=== PATIENT | female | born 1985 | race Two or more races ===

== ENCOUNTER 2024-09-25 04:27 | Inpatient (IN) | payer OTHER ==
[~2024-09-25] VITALS: Ht 165.1 cm; Wt 86.4 kg
--- NOTE | 2024-09-25 05:13 | ED.PDOC ---
History of Present Illness HPI Comments 39-year-old female with PMHx Fibroids brought in by EMS presents with a chief complaint of abdominal pain, nausea, and vomiting. Patient states that her pain is localized to her suprapubic abdomen, non-radiating, describes as sharp, and rates her pain 10/10. Patient reports that the symptoms began at 0300 this morning and that she took an Alleve at 0315. Patient also reports vaginal spotting, but endorses uterine fibroid history. 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 Family History Family History: Reviewed,noncontributory to illness Social History Smoker: Non-Smoker Alcohol: Denies ETOH Use Drugs: Denies Drug Use Lives In: Home Constitutional: denies: chills, diaphoresis, fatigue, fever, malaise, sweats, weakness, others EENTM: denies: blurred vision, double vision, ear bleeding, ear discharge, ear drainage, ear pain, ear ringing, eye pain, eye redness, hearing loss, mouth pain, mouth swelling, nasal discharge, nose bleeding, nose congestion, nose pain, photophobia, tearing, throat pain, throat swelling, voice changes, others Respiratory: denies: cough, hemoptysis, orthopnea, SOB at rest, shortness of breath, SOB with excertion, stridor, wheezing, others Cardiovascular: denies: chest pain, dizzy spells, diaphoresis, Dyspnea on exertion, edema, irregular heart beat, left arm pain, lightheadedness, palpitations, PND, syncope, others Gastrointestinal: reports: abdominal pain, nausea, vomiting; denies: abdomen distended, blood streaked bowels, constipated, diarrhea, dysphagia, difficulty swallowing, hematemesis, melena, poor appetite, poor fluid intake, rectal bleeding, rectal pain, others Genitourinary: denies: abnormal vagina bleeding, burning, dyspareunia, dysuria, flank pain, frequency, hematuria, incontinence, pain, , vagina discharge, urgency, others Neurological: denies: dizziness, fainting, headache, left sided numbness, left sided weakness, numbness, paresthesia, pre-existing deficit, right sided numbness, right sided weakness, seizure, speech problems, tingling, tremors, weakness, others Musculoskeletal: denies: back pain, gout, joint pain, joint swelling, muscle pain, muscle stiffness, neck pain, others Integumetry: denies: bruises, change in color, change in hair/nails, dryness, laceration, lesions, lumps, rash, wounds, others Allergic/Immunocompromised: denies: Difficulty Healing, Frequent Infections, Hives, Itching, others Hematologic/Lymphatic: denies: anemia, blood clots, easy bleeding, easy bruising, swollen glands, others Endocrine: denies: excessive hunger, excessive sweating, excessive thirst, excessive urination, flushing, intolerance to cold, intolerance to heat, unexplained weight gain, unexplained weight loss, others Psychiatric: denies: anxiety, bipolar disorder, depression, hopeless, panic disorder, schizophrenia, sleepless, suicidal, others All Other Systems: Reviewed and Negative Physical Exam General Appearance: Moderate Distress, Normal HEENT: Normal ENT Inspection, Pharynx Normal, TMs Normal Neck: Full Range of Motion, Non-Tender, Normal, Normal Inspection Respiratory: Chest Non-Tender, Lungs Clear, No Accessory Muscle Use, No Respiratory Distress, Normal Breath Sounds Cardiovascular: No Edema, No JVD, No Murmur, No Gallop, Normal Peripheral Pulses, Regular Rate/Rhythm Breast Exam: Deferred Gastrointestinal: No Organomegaly, Non Tender, No Pulsatile Mass, Normal Bowel Sounds, Soft Genitalia: Deferred Pelvic: Deferred Rectal: Deferred Extremities: No calf tenderness, Normal capillary refill, Normal inspection, Normal range of motion, Non-tender, No pedal edema Musculoskeletal : Apperance: Normal Neurologic: Alert, director experimental medicine II-XII nml as Tested, No Motor Deficits, Normal Affect, Normal Mood, No Sensory Deficits Cerebellar Function: NOT DONE Reflexes: NOT DONE Skin: Dry, Normal Color, Warm Peripheral Pulses: 3+ Radial (R), 3+ Radial (L) Lymphatic: No Adenopathy Was a procedure done? Was a procedure done?: No Differential Dx Considerations may include: Fibroid Electrolyte imbalance X-Ray, Labs, Meds, VS Vital Signs Date Time Temp Pulse Resp B/P (MAP) Pulse Ox O2 Delivery O2 Flow Rate FiO2 09/25/24 05:29 16 99 Room Air* 0 21 09/25/24 05:27 97.8 95 16 110/55 (73) 99 97.8 09/25/24 04:31 98.0 85 26 110/75 (87) 95 Lab Test 09/25/24 09:00 09/25/24 06:43 09/25/24 06:30 Range/Units White Blood Count 10.6 4.4-10.8 10^3/uL Red Blood Count 2.99 L 4.0-5.20 10^6/uL Hemoglobin 4.2 *L 12.2-16.2 g/dL Hematocrit 16.0 L 36.0-46.0 % Mean Corpuscular Volume 53.4 L 80.0-100.0 fL Mean Corpuscular Hemoglobin 14.0 L 28.0-32.0 pg Mean Corpuscular Hemoglobin Concent 26.2 L 32.0-36.0 g/dL Red Cell Distribution Width 22.3 H 11.8-14.3 % Platelet Count 192 140-450 10^3/uL Mean Platelet Volume 8.5 6.9-10.8 fL Neutrophils (%) (Auto) 84.0 H 37.0-80.0 % Lymphocytes (%) (Auto) 11.3 10.0-50.0 % Monocytes (%) (Auto) 4.4 0.0-12.0 % Eosinophils (%) (Auto) 0.1 0.0-7.0 % Basophils (%) (Auto) 0.2 0.0-2.0 % Neutrophils # (Auto) 8.9 H 1.6-8.6 10 ^3/uL Lymphocytes # (Auto) 1.2 0.4-5.4 10 ^3/uL Monocytes # (Auto) 0.5 0-1.3 10 ^3/uL Eosinophils # (Auto) 0 0-0.8 10 ^3/uL Basophils # (Auto) 0 0-0.2 10 ^3/uL Nucleated Red Blood Cells 0.2 % Platelet Estimate Adequate Hypochromasia (manual) Marked Anisocytosis (manual) Slight Microcytosis Moderate Tear Drop Cells Few Ovalocytes Few Sodium Level 137 136-145 mmol/L Potassium Level 3.6 3.5-5.1 mmol/L Chloride Level 108 H 98-107 mmol/L Carbon Dioxide Level 21 20-31 mmol/L Anion Gap 8 5-15 Blood Urea Nitrogen 7 L 9-23 mg/dL Creatinine 0.84 0.550-1.02 mg/dL Glomerular Filtration Rate Calc 90 >90 mL/min BUN/Creatinine Ratio 8.3 L 10.0-20.0 Serum Glucose 98 74-106 mg/dL Calcium Level 7.6 L 8.7-10.4 mg/dL Urine Color Light-yellow Yellow Urine Clarity Clear Clear Urine pH 6.0 5.0-9.0 Urine Specific [place] 1.020 1.001-1.035 Urine Protein Trace H Negative Urine Ketones Negative Negative Urine Blood 2+ H Negative /uL Urine Nitrite Negative Negative Urine Bilirubin Negative Negative Urine Urobilinogen Normal Negative mg/dL Urine Leukocyte Esterase 1+ Negative /uL Urine RBC 88 0 - 4 /hpf Urine WBC 7 0 - 5 /hpf Urine Squamous Epithelial Cells Few <5 /hpf Urine Bacteria None seen None Seen /hpf Urine Mucus Few None Seen Urine Glucose Normal Normal mg/dL Urine Test Negative Negative Current Medications Medications (Trade) Dose Ordered Sig/Himanshu Route Start Time Stop Time Status Last Admin Sodium Chloride 1,000 ml @ 1,000 mls/hr Q1H ONCE IV 09/25/24 05:15 09/25/24 06:14 DC 09/25/24 05:41 Acetaminophen (Tylenol Tablet) 650 mg ONCE ONCE PO 09/25/24 05:15 09/25/24 05:16 DC 09/25/24 05:46 Patient alert. Complaining of vaginal spotting. Ultrasound reveals fibroid. Vitals stable. Establish intravenous access. Was given fluids. UA shows UTI. Was given prescription of Macrobid antibiotic. Reviewed her history. Explained to the patient. [facility] approved inpatient admission [id number]. Time of 1ST Reevaluation: 08:57 Reevaluation 1ST: Unchanged Patient Education/Counseling: Diagnosis, Treatment, Prognosis Family Education/Counseling: No Family Present Departure 1 Departure Time of Disposition: 08:58 Impression: Primary Impression: Severe anemia Additional Impressions: Urinary tract infection Qualified Codes: N30.01 - Acute cystitis with hematuria Fibroid Disposition: ADMITTED INPATIENT Admit to: Med Surg Condition: Guarded e-Prescriptions Nitrofurantoin Monohydrate Mac (Macrobid) 100 Mg Cap 100 MG PO BID for 7 Days, #14 CAP Prov: IVETT EDWARDS MD 09/25/24 Discharged With: Self Critical Care Note Critical Care Time?: No Stability Stability form required: No Heart Score Heart Score: Heart Score Response (Comments) Value History N/A 0 EKG N/A 0 Age N/A 0 Risk Factors N/A 0 Troponin N/A 0 Total 0 I personally scribed for SUMANTH VILLEGAS MD ([email or web address]) on 09/25/24 at 05:13. Electronically submitted by Zia Wilkes ([email or web address]). SUMANTH VILLEGAS MD Sep 25, 2024 05:13 IVETT EDWARDS MD Sep 25, 2024 09:00
[2024-09-25 05:27] VITALS: BP 110/55; PULSE 95; TEMP 97.8
[2024-09-25 05:29] VITALS: RESP 16; O2SAT 99
[2024-09-25] MEDS: SODIUM CHLORIDE 0.9% 1,000 ML IV ONE (05:41)
[2024-09-25] MEDS: KETOROLAC TROMETH 30 MG/ML 1ML VIAL IV ONE (05:44)
[2024-09-25] MEDS: ACETAMINOPHEN 325 MG TAB PO ONE (05:46)
[2024-09-25] MEDS: ONDANSETRON HCL 4 MG/2 ML VIAL IV ONE (05:46)
[2024-09-25 07:19] LABS: Urine Bacteria None Seen /hpf (None Seen)
[2024-09-25 07:19] LABS: Potassium 3.6 mmol/L (3.5-5.1); Sodium 137 mmol/L (136-145)
[2024-09-25 07:20] LABS: Anion Gap 8 (5-15); Carbon Dioxide 21 mmol/L (20-31)
[2024-09-25 07:25] LABS: Glucose 98 mg/dL (74-106)
[2024-09-25 07:25] LABS: Urine Blood 2+ /uL (Negative); Urine Clarity Clear (Clear); Urine Color Light-Yellow (Yellow); Urine Mucus FEW (None Seen); Urine Protein, UAD TRACE (Negative); Urine Urobilinogen Normal (Negative); Urine WBC 7 /hpf (0 - 5)
[2024-09-25 07:26] LABS: BUN/Creatinine Ratio 8.3 (10.0-20.0); Blood Urea Nitrogen 7 mg/dL (9-23); Calcium 7.6 mg/dL (8.7-10.4); Chloride 108 mmol/L (98-107)
--- NOTE | 2024-09-25 08:34 | DVH ---
INDICATION: Fibroid TECHNIQUE: Multiple real-time grayscale transabdominal sonographic images along with color and duplex Doppler of the uterus and ovaries were obtained. COMPARISON: None FINDINGS: The uterus measures 15.3 x 8.2 x 9.8 cm. The uterus is heterogeneous in echotexture. There are 3 uterine masses in the myometrium the largest measuring 4.7 x 4.5 x 4.6 cm compatible with fibro ids. The endometrial stripe measures 0.8 cm. The right ovary measures 2.6 x 1.1 x 2.6 cm. The left ovary measures 2.3 x 2.6 x 1.8 cm. Subsequent color and duplex Doppler interrogation of the ovaries demonstrated symmetric vascular flow to both ovaries. No free fluid in the cul-de-sac. IMPRESSION: 1. Intramural fibroids, the largest measuring 4.7 cm. 2. Unremarkable sonographic appearance of the bilateral ovaries.
[2024-09-25] MEDS ORDERED: NITR-87 PO (08:59)
[2024-09-25 09:16] LABS: Basophils # (auto) 0 10 ^3/uL (0-0.2); Eosinophils # (auto) 0 10 ^3/uL (0-0.8); Eosinophils % (auto) 0.1 % (0.0-7.0); Lymphocytes # (auto) 1.2 10 ^3/uL (0.4-5.4); Mean Corpuscular Volume 53.4 fL (80.0-100.0); Monocytes # (auto) 0.5 10 ^3/uL (0-1.3)
[2024-09-25 09:18] LABS: Basophils % (auto) 0.2 % (0.0-2.0); Lymphocytes % (auto) 11.3 % (10.0-50.0); Mean Corpuscular Hgb Conc. 26.2 g/dL (32.0-36.0); Monocytes % (auto) 4.4 % (0.0-12.0); Neutrophils # (auto) 8.9 10 ^3/uL (1.6-8.6); Nucleated Red Blood Cells % 0.2 %; Platelet Count (auto) 192 10^3/uL (140-450); Red Blood Cells 2.99 10^6/uL (4.0-5.20); White Blood Cell 10.6 10^3/uL (4.4-10.8)
[2024-09-25 09:42] LABS: Red Cell Distribution Width 22.3 % (11.8-14.3)
[2024-09-25 09:44] LABS: Hemoglobin 4.2 g/dL (12.2-16.2)
[2024-09-25 10:06] LABS: Anisocytosis Slight; Hypochromia Marked; Platelet Estimate Adequate
[2024-09-25 10:07] LABS: Ovalocytes FEW; Tear Drop Cells FEW
[2024-09-25] MEDS: cefTRIAXone 1GM/50ML D5W 50 ML IV ONE (11:35)
--- NOTE | 2024-09-25 12:01 | DVHHP2 ---
History of Present Illness Reason for Visit: abd pain dizziness weakness History of Present Illness 39-year-old female past medical history denies no surgical history chief complaint patient comes in because she stated she has been having severe lower pelvic pain and cramping dizziness and weakness. She states it all started last year she started having issues with her cycle. She has been having more heavy Mrs. Than normal. She states that she did get a blood transfusion in the past in January of 2024 she feels was related to her having fibroids but she never had initial ultrasound and confirmation as of yet. She does go to [facility] to be seen and she wants to go follow up with the inner diameter grinder tool provider to have a procedure to get rid of the circulation to the fibroid she has a inner diameter grinder tool doctor she wants to go see. Patient currently is severe anemic on my exam but does not want a transfusion. She states she wants to go do outpatient follow up in tried to bring her anemia up on its own. She states that she was on control pills and despite that she continues to bleed currently she was having 1-2 pads a day but she states she was due to have her menses to started again. When looking at her labs from the ED hemoglobin was 4.2 16.0 chloride is 108 calcium was low at 7.6 UA showed trace blood and leukocytes ultrasound found a 4.7 cm fibroid. Patient was to be admitted for blood transfusion but patient declined admission and left AMA Past Medical History Denies medical history Past Surgical History Denies surgical history Family History Reviewed, non-contributory to the management of this case. Past Social History The patient lives at home, denies smoking, alcohol or illicit drugs abuse. Review of Systems Constitutional: Yes: Other (Pale in color) Eyes: No: Pain, Vision change, Conjunctivae inflammation, Eyelid inflammation, Other, Redness ENT: No: Ear pain, Ear discharge, Nose pain, Nose discharge, Nose congestion, Mouth pain, Mouth swelling, Throat pain, Throat swelling, Other Respiratory: No: Cough, Dry, Shortness of breath, SOB with excertion, Wheezing, Hemoptysis, Pleuritic Pain, Sputum, Wheezing, Other Cardiovascular: No: Chest Pain, Palpitations, Orthopnea, Paroxysmal Noc. Dyspnea, Edema, Lt Headedness, Other Gastrointestinal: No: Nausea, Vomiting, Abdominal Pain, Diarrhea, Constipation, Melena, Hematochezia, Other Genitourinary: No Dysuria, No Frequency, No Incontinence, No Hematuria, No Retention; Other (Vaginal bleeding) Musculoskeletal: No: other, neck pain, shoulder pain, arm pain, back pain, hand pain, leg pain, foot pain Skin: No: Rash, Lesions, Jaundice, Bruising, Other Neurological: Weakness (And dizziness); No: Numbness, Incoordination, Change in speech, Confusion, Seizures, Other Allergies: Coded Allergies: NO KNOWN ALLERGIES (Unverified , 09/25/24) Exam Vital Signs Vital Signs Date Time Temp Pulse Resp B/P (MAP) Pulse Ox O2 Delivery O2 Flow Rate FiO2 09/25/24 05:29 16 99 Room Air* 0 21 09/25/24 05:27 97.8 95 110/55 (73) 97.8 General Appearance: Alert, Oriented X3, Cooperative, Other (Pale in color) HEENT: Atraumatic, PERRLA, EOMI, Mucous membr. moist/pink Respiratory: Clear to auscultation, Normal air movement Cardiovascular: Regular rate, Normal S1, Normal S2, No murmurs Abdominal: Normal bowel sounds, Soft, No tenderness, No hepatospenomegaly, No masses Extremities: No clubbing, No cyanosis, No edema, Normal pulses, No tenderness/swelling Skin: No rashes, No breakdown, No significant lesion Neuro: Normal gait, Normal speech, Strength at 5/5 X4 ext, Normal tone, Sensation intact, Cranial nerves 3-12 NL Psych/Mental Status: Mental status NL, Mood NL Labs/Xrays I reviewed labs, imaging CT scan abdomen pelvis, EKG and all diagnostic studies on this patient from ED records and the medical chart Ultrasound found to have 4.7 cm fibroids Labs Test 09/25/24 09:00 09/25/24 06:43 09/25/24 06:30 Range/Units White Blood Count 10.6 4.4-10.8 10^3/uL Red Blood Count 2.99 L 4.0-5.20 10^6/uL Hemoglobin 4.2 *L 12.2-16.2 g/dL Hematocrit 16.0 L 36.0-46.0 % Mean Corpuscular Volume 53.4 L 80.0-100.0 fL Mean Corpuscular Hemoglobin 14.0 L 28.0-32.0 pg Mean Corpuscular Hemoglobin Concent 26.2 L 32.0-36.0 g/dL Red Cell Distribution Width 22.3 H 11.8-14.3 % Platelet Count 192 140-450 10^3/uL Mean Platelet Volume 8.5 6.9-10.8 fL Neutrophils (%) (Auto) 84.0 H 37.0-80.0 % Lymphocytes (%) (Auto) 11.3 10.0-50.0 % Monocytes (%) (Auto) 4.4 0.0-12.0 % Eosinophils (%) (Auto) 0.1 0.0-7.0 % Basophils (%) (Auto) 0.2 0.0-2.0 % Neutrophils # (Auto) 8.9 H 1.6-8.6 10 ^3/uL Lymphocytes # (Auto) 1.2 0.4-5.4 10 ^3/uL Monocytes # (Auto) 0.5 0-1.3 10 ^3/uL Eosinophils # (Auto) 0 0-0.8 10 ^3/uL Basophils # (Auto) 0 0-0.2 10 ^3/uL Nucleated Red Blood Cells 0.2 % Platelet Estimate Adequate Hypochromasia (manual) Marked Anisocytosis (manual) Slight Microcytosis Moderate Tear Drop Cells Few Ovalocytes Few Sodium Level 137 136-145 mmol/L Potassium Level 3.6 3.5-5.1 mmol/L Chloride Level 108 H 98-107 mmol/L Carbon Dioxide Level 21 20-31 mmol/L Anion Gap 8 5-15 Blood Urea Nitrogen 7 L 9-23 mg/dL Creatinine 0.84 0.550-1.02 mg/dL Glomerular Filtration Rate Calc 90 >90 mL/min BUN/Creatinine Ratio 8.3 L 10.0-20.0 Serum Glucose 98 74-106 mg/dL Calcium Level 7.6 L 8.7-10.4 mg/dL Urine Color Light-yellow Yellow Urine Clarity Clear Clear Urine pH 6.0 5.0-9.0 Urine Specific [place] 1.020 1.001-1.035 Urine Protein Trace H Negative Urine Ketones Negative Negative Urine Blood 2+ H Negative /uL Urine Nitrite Negative Negative Urine Bilirubin Negative Negative Urine Urobilinogen Normal Negative mg/dL Urine Leukocyte Esterase 1+ Negative /uL Urine RBC 88 0 - 4 /hpf Urine WBC 7 0 - 5 /hpf Urine Squamous Epithelial Cells Few <5 /hpf Urine Bacteria None seen None Seen /hpf Urine Mucus Few None Seen Urine Glucose Normal Normal mg/dL Urine Test Negative Negative Assessment/Plan Assessment/Plan Acute symptomatic blood loss anemia likely to fibroids pt will be provided 3 units or prbc's will do follow up h/h post transfusion will need outpt follow up with inner diameter grinder tool ordered ivf for now Patient had ultrasound completed shows 4.7 cm fibroids Acute hypocalcemia will provide calcium gluconate iv x1 fu [place] in am Acute cystitis found on ua ordered ceftriaxone 1 gm iv Chronic fibroids found us outpt follow up with inner diameter grinder tool fen/ppx diet ivf scd no dvt ppx since pt with acute bleeding no gi ppx since no hx of gerd or gi bleed plan admit to medicine pt was authorized to admit here per [place] Discharge plan admit to [facility] medicine for blood transfusion but patient left AMA with family at side despite discussion of needing to stay treatment did inform him that his risk factors of leaving which is worsening sepsis confusion, more drop in hemoglobin and pt still declines to stay, . pt with capicity to make medical decisions is alert and oriented x 4. able to voice risk and benefits of leaving against medical advice. did enc pt to stay but still declined to stay, pt was signed out and enc to return at any time he feels his symptoms are worsening. pt agrees. Plan discussed with: Patient Date of Service: Sep 25, 2024 Billing Provider: JAVIER LINDER DNP Common Visit Codes: [id number] INP/OBS CARE (HIGH) JAVIER LINDER DNP Sep 25, 2024 12:01
[2024-09-25] MEDS ORDERED: NITROGLYCERIN 0.4 MG SL TAB SL PRN (13:15)
== END 2024-09-25 13:07 | disposition left against medical advice (07) | DRG 760 ==
LOC: EDBD 04:27 → ER 04:27 → OVERFLOW 12:52
PROVIDERS: ADMIT Nurse Practitioner Family; ATTEND Nurse Practitioner Family
DX: D25.9 Leiomyoma of uterus, unspecified (principal); D62 Acute posthemorrhagic anemia; N30.01 Acute cystitis with hematuria; E83.51 Hypocalcemia; Z53.29 Procedure and treatment not carried out because of patient's decision for other reasons; Z79.899 Other long term (current) drug therapy
CPT/HCPCS: 36415; 76856; 80048; 81001; 81025; 85025; 96360; G0378; J1885